=== PATIENT | female | born 1995 | race African-American/Black ===

== ENCOUNTER 2017-06-28 09:58 | Emergency (ER) | payer MEDICAID ==
[~2017-06-28] VITALS: Ht 165.1 cm; Wt 54.4 kg
--- NOTE | 2017-06-28 10:04 | Emergency Room Report ---
History of Present Illness General Chief Complaint: Foot rash Source: Patient Present Illness HPI Patient is a 21-year-old female presented after increased a left-sided foot pain. The patient stated that she had recent seen a nail salon and had noted bleeding from side of foot after foot was cleansed. The patient reports having onset yesterday. She denies any fever. She denies any mouth or genital lesions. She had not been vomiting. She denies other locations of pain other than her foot. She presented to clean it with peroxide Allergies: Coded Allergies: No Known Allergies (Unverified , 06/28/17) Patient History Past Medical History: see triage record Past Surgical History: unable to obtain Reviewed Nursing Documentation: PMH: Agreed, PSxH: Agreed Review of Systems All Other Systems: negative except mentioned in HPI Physical Exam Sp02 EP Interpretation: reviewed, normal General Appearance: normal inspection, well appearing, no apparent distress, alert, GCS 15 Head: atraumatic ENT: normal ENT inspection, hearing grossly normal, normal voice Neck: normal inspection, full range of motion, supple, no bony tend Respiratory: normal inspection, lungs clear, normal breath sounds, no respiratory distress, no retraction, no wheezing Cardiovascular #1: regular rate, rhythm, no edema Gastrointestinal: normal inspection, normal bowel sounds, non tender, soft, no guarding, no hernia Genitourinary: no CVA tenderness Musculoskeletal: normal inspection, back normal, normal range of motion Neurologic: normal inspection, alert, oriented x3, responsive, enterprise resource planning consultant III-XII nml as tested, speech normal Psychiatric: normal inspection, judgement/insight normal, mood/affect normal Skin: abrasions - left lateral foot, superficial Medical Decision Making Diagnostic Impression: Primary Impression: Foot abrasion, non-infected ER Course Patient presented for foot rash. Differential diagnoses included was not limited to shingles, hand foot mouth disease, abrasion among others. Patient has a benign exam and does not appear to require any further imaging or laboratory testing at this time. Patient was noted to have lateral abrasions to her foot. Bacitracin was applied and wound was dressed. Patient declined tetanus vaccine. The patient was medically cleared for booking and transportation. The patient is advised to follow up with primary care doctor in 2-3 days. Patient is advised to return if any worsening condition or if any changes in status that are concerning. This report is dictated with [employer] boathouse keeper software which may occasionally lead to discrepancies related to use of this software. Status: improved Disposition: HOME, SELF-CARE Condition: Stable Aden Block Jun 28, 2017 10:04
[2017-06-28] MEDS: Bacitracin Oint UD TOPIC ONE (10:07)
[2017-06-28] MEDS ORDERED: BACITRACIN ZIN1 EACH TOPIC (10:17)
[2017-06-28 10:18] VITALS: BP 110/69
[2017-06-28 10:19] VITALS: BP 110/69
== END 2017-06-28 10:58 | disposition home or self-care (01) ==
LOC: EMR 10:32
DX: S90.812A Abrasion, left foot, initial encounter (principal); X58.XXXA Exposure to other specified factors, initial encounter; Y92.89 Other specified places as the place of occurrence of the external cause
CPT/HCPCS: 99283